=== PATIENT | male | born 1970 | race Hispanic/Latino ===

== ENCOUNTER 2023-01-27 10:48 | Emergency (ER) | payer OTHER ==
[~2023-01-27] VITALS: Ht 162.6 cm; Wt 64.0 kg
[2023-01-27 10:59] VITALS: BP 140/66
[2023-01-27 11:00] VITALS: BP 135/70
[2023-01-27 11:16] VITALS: BP 129/57
[2023-01-27 11:30] VITALS: BP 120/68
[2023-01-27] MEDS ORDERED: BACTRIM DS1 TAB PO (11:30)
[2023-01-27] MEDS ORDERED: OMNI-PAC300 MG PO (11:30)
[2023-01-27 11:46] VITALS: BP 134/80
[2023-01-27 12:09] VITALS: BP 134/80
== END 2023-01-27 12:11 | disposition home or self-care (01) | DRG 603 ==
LOC: ED 10:48
PROC: 0H9LXZZ Drainage of Left Lower Leg Skin, External Approach (ICD-10-PCS; principal; 2023-01-27)
DX: L02.416 Cutaneous abscess of left lower limb (principal); E11.9 Type 2 diabetes mellitus without complications